=== PATIENT | female | born 2000 ===

== ENCOUNTER 2019-05-07 01:20 | Emergency (ER) | payer MEDICAID ==
[~2019-05-07] VITALS: Ht 162.6 cm; Wt 99.8 kg
[2019-05-07 01:34] VITALS: BP 141/84
--- NOTE | 2019-05-07 01:35 | NUR ---
ED Nurse Note: Patient has pain score 6 to the upper left chest states it sometimes is worse on inspiration. Hashad recent symptoms of a cold - runny nose. States the pain is not worse with exertion. No nausea feels like a sharp pain but it moves around not always in the same place. No SOB, A&OX3. Sister present. EKG changed into gown, vitals monitored.
[2019-05-07] MEDS ORDERED: IBUPROFEN600 MG ORAL (01:47)
--- NOTE | 2019-05-07 01:48 | Emergency Room Report ---
History of Present Illness General Chief Complaint: Chest Pain Source: Patient Present Illness HPI This a 18-year-old female with no past medical history. She presents with chief complaint of chest pain. Onset this morning. Pain is to the left side. Worse with coughing. Worse with movement. Better with rest. No radiation of pain. No diaphoresis. No exertional component. She also has cough and congestion. Subjective fever. Allergies: Coded Allergies: No Known Allergies (Unverified , 05/07/19) Patient History Past Medical History: none, see triage record, old chart reviewed Past Surgical History: none Pertinent Family History: none Social History: Denies: smoking Last Menstrual Period: 04/07/19 Now: No Immunizations: other Reviewed Nursing Documentation: PMH: Agreed; PSxH: Agreed Nursing Documentation-PMH Past Medical History: No History, Except For Review of Systems Eye: Denies: eye pain, blurred vision ENT: Reports: nose congestion; Denies: ear pain, throat swelling Respiratory: Reports: cough; Denies: shortness of breath Cardiovascular: Reports: chest pain; Denies: palpitations Gastrointestinal: Denies: abdominal pain, diarrhea, nausea, vomiting Musculoskeletal: Denies: back pain, joint pain Skin: Denies: rash Neurological: Denies: headache, numbness Endocrine: Denies: increased thirst, increased urine Hematologic/Lymphatic: Denies: easy bruising All Other Systems: negative except mentioned in HPI Physical Exam Vital Signs Date Time Temp Pulse Resp B/P (MAP) Pulse Ox O2 Delivery O2 Flow Rate FiO2 05/07/19 01:25 98.2 92 16 125/82 (96) 97 Room Air Normal Sp02 EP Interpretation: reviewed, normal General Appearance: well appearing, no apparent distress, alert Head: normocephalic, atraumatic Eyes: bilateral eye PERRL, bilateral eye EOMI ENT: hearing grossly normal, normal pharynx Neck: full range of motion, supple, no meningismus Respiratory: chest non-tender, lungs clear, normal breath sounds Cardiovascular #1: regular rate, rhythm, no murmur Gastrointestinal: normal bowel sounds, non tender, no mass, no organomegaly, no bruit, non-distended Musculoskeletal: back normal, gait/station normal, normal range of motion Psychiatric: mood/affect normal Medical Decision Making Diagnostic Impression: Primary Impression: Chest pain Qualified Codes: R07.9 - Chest pain, unspecified ER Course Patient with noncardiac chest pain. Most likely upper respiratory infection causing the pain. She is not on control pill and not tachycardic or tachypneic. Not hypoxic. No family history of DVT or PE. EKG normal. Will discharge home. EKG Diagnostic Results Rate: normal Rhythm: NSR ST Segments: no acute changes Rhythm Strip Diag. Results EP Interpretation: yes Rate: 90 Rhythm: NSR, no PVC's, no ectopy Last Vital Signs Date Time Temp Pulse Resp B/P (MAP) Pulse Ox O2 Delivery O2 Flow Rate FiO2 05/07/19 01:38 78 18 Room Air 05/07/19 01:34 98.7 141/84 98 Status: unchanged Disposition: HOME, SELF-CARE Condition: Stable Scripts Ibuprofen* (MOTRIN*) 600 Mg Tablet 600 MG ORAL THREE TIMES A DAY, #30 TAB 0 Refills Prov: Adán Mercado MD 05/07/19 Patient Instructions: Nonspecific Chest Pain Additional Instructions: Followup with your doctor in 7 days. Return if symptoms worsen. Adán Mercado MD May 07, 2019 01:48
--- NOTE | 2019-05-07 02:10 | NUR ---
ER DISCHARGE NOTE: Patient is cleared to be discharged per ERMD, pt is aox4, on room air, with stable vital signs. pt was given dc and prescription instructions, pt was able to verbalize understanding, pt id band removed without complications. pt is able to ambulate with steady gait. pt took all belongings. Accompanied home by sister. Pain improved.
== END 2019-05-07 02:10 | disposition home or self-care (01) ==
LOC: EMR 01:50
DX: R07.9 Chest pain, unspecified (principal)
CPT/HCPCS: 93005; Z7502; 99283